=== PATIENT | male | born 1995 | race Caucasian/White ===

== ENCOUNTER 2019-08-03 09:04 | Emergency (ER) | payer MEDICARE, OTHER ==
[~2019-08-03] VITALS: Ht 170.2 cm; Wt 81.7 kg
[2019-08-03] MEDS ORDERED: LAMICTAL150 MG PO (09:08)
[2019-08-03 09:47] VITALS: BP 136/86
== END 2019-08-03 09:48 | disposition home or self-care (01) ==
LOC: M.ERS 09:04
DX: S01.03XA Puncture wound without foreign body of scalp, initial encounter (principal); R56.9 Unspecified convulsions; W18.39XA Other fall on same level, initial encounter; Y93.89 Activity, other specified; Y92.89 Other specified places as the place of occurrence of the external cause; Y99.8 Other external cause status